=== PATIENT | female | born 1965 | race Caucasian/White ===

== ENCOUNTER 2017-12-06 10:36 | Outpatient (CLI) | payer OTHER | END 2017-12-06 10:46 | disposition home or self-care (01) | LOC: SONOGRAMA 10:36 | DX: E04.1 Nontoxic single thyroid nodule (principal) ==

== ENCOUNTER 2019-04-04 12:17 | Emergency (ER) | payer OTHER ==
[~2019-04-04] VITALS: Ht 160 cm; Wt 93.0 kg
== END 2019-04-04 20:31 | disposition home or self-care (01) ==
LOC: ER 12:17
DX: R10.84 Generalized abdominal pain (principal); R19.7 Diarrhea, unspecified

== ENCOUNTER → 2020-05-22 10:11 | Outpatient (CLI) | payer OTHER ==
[~2020-05-22 10:11] MED LIST: PREVACID15 MG PO
== END | disposition home or self-care (01) ==
LOC: LAB 10:11
PROVIDERS: ATTEND Surgery
DX: E21.0 Primary hyperparathyroidism (principal)

== ENCOUNTER 2020-06-04 05:45 | Day surgery (SDC) | payer OTHER ==
[2020-06-04] MEDS ORDERED: ULTRAM50 MG PO (13:04)
== END 2020-06-04 16:00 | disposition home or self-care (01) ==
LOC: CIR.AMB 05:45 → ADM 12:00 → CIR.AMB 16:00
PROVIDERS: ATTEND Surgery
DX: D35.1 Benign neoplasm of parathyroid gland (principal); Z20.828 Contact with and (suspected) exposure to other viral communicable diseases

== ENCOUNTER 2023-08-18 17:22 | Emergency (ER) | payer OTHER ==
[~2023-08-18] VITALS: Ht 160 cm; Wt 86.2 kg
[~2023-08-18 17:22] MED LIST changes: +ULTRAM50 MG PO
[2023-08-18 18:19] LABS: HEMATOCRIT 42.2 % (36.0-45.00); HEMOGLOBIN 14.3 g/dL (12.0-15.00); MEAN CELL VOLUME 92.8 fL (80.00-100.00); MEAN CORPUSCULAR HEMOGLOBIN 31.4 pg (27.00-32.0); MEAN CORPUSCULAR HGB CONC 33.8 g/dl (32.0-36.0); PLATELET COUNT 272 K/uL (150-450); RED BLOOD COUNT 4.55 M/uL (4.00-6.00); RED CELL DISTRIBUTION WIDTH 13.3 % (11.5-14.5)
== END 2023-08-18 18:30 | disposition home or self-care (01) ==
LOC: ER 17:22
PROVIDERS: General Practice
DX: R59.1 Generalized enlarged lymph nodes (principal); Z88.5 Allergy status to narcotic agent